=== PATIENT | female | born 1970 | race Caucasian/White ===

== ENCOUNTER 2021-08-25 09:29 | Outpatient (CLI) | payer BC, SELFPAY ==
[2021-08-25 11:33] LABS: Cholesterol* 176 mg/dL (90-199); HDL Cholesterol* 50 mg/dL (>=50); LDL Cholesterol Calculated 109 mg/dL (<100); Triglycerides* 84 mg/dL (40-149)
[2021-08-25 15:43] LABS: Glucose* 105 mg/dL (60-115)
[2021-08-27 00:17] LABS: Follicle Stimulating Hormone 20.7 IU/L
== END 2021-08-25 09:30 | disposition home or self-care (01) ==
PROVIDERS: PCP Family Medicine; Visit Provider Physician Assistant
DX: R53.83 Other fatigue (principal); N95.1 Menopausal and female climacteric states; R23.2 Flushing
CPT/HCPCS: 80061; 82947; 83001; 84443

== ENCOUNTER 2022-01-20 09:41 | Emergency (ER) | payer BC, SELFPAY ==
[2022-01-20 09:49] VITALS: BP 116/76; PULSE 96; RESP 20; TEMP 36.6; O2SAT 95; BMI 32.5
--- NOTE | 2022-01-20 10:09 | ED_ITS ---
HPI - General Adult General Chief complaint: Skin/Abscess/Foreign Body Stated complaint: Broke out in hives, post op Time Seen by Provider: 01/20/22 09:56 History of Present Illness HPI narrative: This 51-year-old female comes in reporting pruritic hives that began yesterday. Four days ago she had a tummy tuck and liposuction procedure. Since then she has been wearing a binder that covers her upper thighs, pelvis, and abdomen. It is in this area primarily where she has pruritus and maculopapular rash. Some of this is extended up into her axilla and upper arms. She states that she is due to have this binder removed on day 4 or 5. Today is day 4 postop. She did take 2 Benadryl tablets last evening and did not get much relief but states that it made her tired and she slept well. Related Data Home Medications Medication Instructions Recorded Confirmed estrogen balance PO 12/08/21 Previous Rx's Medication Instructions Recorded venlafaxine 37.5 mg 37.5 mg PO QDAY #90 caps 10/20/21 capsule,extended release 24 hr (Effexor XR) methylprednisolone 4 mg tablets in See Rx Instructions PO .COMPLEX 01/20/22 a dose pack (Medrol (John)) #21 ea triamcinolone acetonide 0.1 % 1 applic topical BID #30 grams 01/20/22 topical cream Allergies Allergy/AdvReac Type Severity Reaction Status Date / Time penicillin V Allergy Intermediate Hives Verified 12/08/21 14:36 tazobactam Allergy Mild Rash Verified 12/08/21 14:36 sulfacetamide AdvReac Intermediate Migraine Verified 12/08/21 14:36 hydrocodone AdvReac Unknown Constipatio Verified 12/08/21 14:36 n hydromorphone AdvReac Constipatio Verified 12/08/21 14:36 n Clavulanate Allergy Mild Rash Uncoded 12/08/21 14:36 Sulfa drugs AdvReac Intermediate Migraine Uncoded 12/08/21 14:36 Review of Systems Status of ROS: Reports: 10 or more systems reviewed and unremarkable except as noted in History and below Narrative: Constitutional: No fevers, no weight gain or loss. Eyes: No discharge. No vision changes. HENT: No congestion, no sore throat, no ear pain. Cardiovascular: No chest pain, no palpitations. Respiratory: No shortness of breath, no wheezes, no cough. Gastrointestinal: No abdominal pain, no vomiting, no diarrhea. Genitourinary: No dysuria, no hematuria. Musculoskeletal: Normal range of motion. Skin: Pruritic rash as described above. Neurological: No dizziness, weakness, sensory change, speech change. Endo/Heme/Allergies: No bruising or bleeding. No polydipsia. Pysch: no suicidality, no anxiety, no insomnia. All other systems reviewed and are negative. [facility] Medical History (Updated 01/20/22 @ 10:13 by Misbah Jenkins MD) Diverticulitis of intestine (2017) Gastroesophageal reflux disease Irritable bowel syndrome Vasomotor symptoms due to menopause Surgical History (Updated 12/10/21 @ 22:31 by Camilo Logan MD) History of section History of colonoscopy History of knee surgery History of reduction mammoplasty S/P LASIK surgery Status post hysterectomy Status post laparoscopic colectomy Family History Other FH: thyroid cancer Family history of Hodgkin's lymphoma Social History Narrative: Patient is . She works in customer service. Has high school level education. Exercises regularly. Does not use tobacco or E cigarettes. Denies alcohol or recreational drug use. No concerns with safety or abuse. Smoking Status: Never smoker Do you use any of these nicotine containing products: None Second hand tobacco smoke exposure: No How often do you have a drink containing alcohol: monthly or less How many standard drinks containing alcohol do you have on a typical day: 1 or 2 AUDIT-C Alcohol total score: 1 Non-prescribed substance use: denies use Little interest or pleasure in doing things: not at all Feeling down, depressed, or hopeless: not at all Exam Narrative: Exam Narrative: Constitutional: Well-developed, well-nourished, no acute distress. HEENT: Normocephalic, atraumatic. Neck: Normal range of motion. Nontender. Supple. Heart: Regular. No murmurs. Normal rate. Intact distal pulses. Lungs: Clear to auscultation. No chest discomfort. No wheezes, rhonchi, or rales. Abdomen: Normal bowel sounds. Nontender. No rebound tenderness. Genitalia: Deferred. Back: No midline tenderness. Normal range of motion. Extremities: Normal range of motion. No injury. Skin: Intact. Warm. No erythema or pallor. Maculopapular rash that is pruritic on the trunk and upper portion of lower extremities and upper extremities. Neurologic: No altered sensation. No weakness. Alert and oriented. Psychiatric: No suicidality. No anxiety or depression. No insomnia. Nursing notes and vitals signs are reviewed. Const: Vital Signs, click to edit/add: Vital Signs - 24 hr 01/20/22 09:49 Temperature 97.9 F Pulse Rate [Right Pulse Oximeter] 96 Respiratory Rate 20 Blood Pressure [Le ft Upper Arm] 116/76 Pulse Oximetry 95 Oxygen Delivery Me thod Room Air Course Vital Signs Vital signs: Initial Vital Signs Temperature 97.9 F 01/20/22 09:49 Temperature Source Temporal Artery Scan 01/20/22 09:49 Pulse Rate 96 01/20/22 09:49 Respiratory Rate 20 01/20/22 09:49 Blood Pressure 116/76 01/20/22 09:49 Blood Pressure Mean 89 01/20/22 09:49 Blood Pressure Position Sitting 01/20/22 09:49 Pulse Oximetry 95 01/20/22 09:49 Oxygen Delivery Method 01/20/22 09:49 Vital Signs Temperature 97.9 F 01/20/22 09:49 Pulse Rate 96 01/20/22 09:49 Respiratory Rate 20 01/20/22 09:49 Blood Pressure 116/76 01/20/22 09:49 Pulse Oximetry 95 01/20/22 09:49 Oxygen Delivery Method 01/20/22 09:49 Temperature 97.9 F 01/20/22 09:49 Pulse Rate 96 01/20/22 09:49 Respiratory Rate 20 01/20/22 09:49 Blood Pressure 116/76 01/20/22 09:49 Pulse Oximetry 95 01/20/22 09:49 Oxygen Delivery Method 01/20/22 09:49 Medical Decision Making MDM Narrative Medical decision making narrative: This patient comes in with maculopapular rash that is pruritic. She is not on any new medications. She did have liposuction and tummy tuck done 4 days ago and has been wearing a girdle and that is suspicious as the cause for her symptoms. Today is day 4 and she is instructed that it is okay to remove it at this time. The binder was removed. The patient received an oral dose of dexamethasone and prescriptions for Medrol Dosepak and triamcinolone cream. I encouraged her to also to use [id number] antihistamines as needed and dir ected. Discharge Plan Discharge Clinical Impression: Acute urticaria, Rash Patient Disposition: Home, Self-Care Condition: Stable Additional Instructions: Take medication as needed and directed. Follow up with MD or return if worsening. Prescriptions: New triamcinolone acetonide 0.1 % cream 1 applic topical BID Qty: 30 0RF methylprednisolone [Medrol (John)] 4 mg tablets,dose pack See Rx Instructions .ROUTE .COMPLEX Qty: 21 0RF Rx Instructions: orally per package directions No Action venlafaxine [Effexor XR] 37.5 mg capsule,extended release 24hr 37.5 mg PO QDAY Qty: 90 2RF estrogen balance PO Follow Up/Referrals: Camilo Logan MD [Primary Care Provider] - Stand Alone Forms: [email or web address] Info Instructions
[2022-01-20] MEDS: dexAMETHasone 10 MG/ML inj PO (10:25)
--- OUTSIDE RECORDS SUMMARY | 2022-01-20 10:25 | XMS_ITS | Clinical Summary ---
:1970 Author Organization [employer] [facility] [place] [address] Care Team Providers Name Role Phone All Mak MD Primary Care Provider Allergies Active Allergy Reactions Severity Noted Date Comments Amoxicillin Hives High 10/24/2011 Penicillins Hives High 10/24/2011 Sulfa (Sulfonamide Antibiotics) Headache High 2 Hydrocodone-Acetaminophen Constipation High 10/24/2011 Medications No known medications Active Problems Not on file Social History Tobacco Use Types Packs/Day Years Used Date Never Smoker Smokeless Tobacco: Never Used Tobacco Cessation: Counseling Given: Yes Alcohol Use Standard Drinks/Week Comments No 0 (1 standard drink = 0.6 oz pure alcoho l) Sex Assigned at Date Recorded Not on file Obstetrics History Last Filed Vital Signs Vital Sign Reading Time Taken Comments Blood Pressure 112/76 10/16/2016 3:56 PM CDT Pulse 60 10/16/2016 3:56 PM CDT Temperature 36.7 ??C (98.1 ??F) 10/16/2016 3:56 PM CDT Respiratory Rate - - Oxygen Saturation 98% 10/16/2016 3:56 PM CDT Inhaled Oxygen Concentration - - Weight 95.1 kg (209 lb 9.6 oz) 10/02/2016 1:15 PM CDT Height - - Body Mass Index - - Plan of Treatment Health Maintenance Due Date Last Done Comments COVID-19 vaccine series (#1) 06/17/1970 Tdap 1980 Depression screening for age 12+ 1981 HIV for age 15-65 1984 BMI (ht and wt on same day) for age 18+ 12/18/1987 Hepatitis C screening for age 18-79 12/18/1987 Tetanus booster 1989 Pap test for age 21-65 1990 Colonoscopy through age 75 2014 Lipids for age 45-75 2014 Mammogram for age 45-75 2014 Zoster (shingles) series for age 50+ (1 of 2) 12/18/2019 Influenza for age 50-64 10/26/2021 Results Not on filefrom Last 3 Months Insurance Payer Benefit Plan / Subscriber ID Effective Dates Phone Addre ss Type Group BLUE CROSS BLUE CROSS OF [id number] 2019-Present [address] [place] [address] Care Teams Research Biologist Relationship Specialty Start Date End Date All Mak MD PCP - General Family Practice 10/22/11
== END 2022-01-20 10:25 | disposition home or self-care (01) ==
LOC: ED 10:24
PROVIDERS: Emergency Provider Emergency Medicine Emergency Medical Services; PCP Family Medicine
DX: L50.9 Urticaria, unspecified (principal); L29.9 Pruritus, unspecified
CPT/HCPCS: 99283; 99284; J1100

== ENCOUNTER 2022-01-21 21:10 | Emergency (ER) | payer BC, SELFPAY ==
[2022-01-21 21:52] VITALS: BP 129/81; PULSE 77; RESP 20; TEMP 36.4; O2SAT 98; BMI 31.0
--- NOTE | 2022-01-21 22:56 | ED.GENADULT ---
HPI - General Adult General Chief complaint: Edema Stated complaint: hives/face is swelling up Time Seen by Provider: 01/21/22 22:35 Source: patient and family Mode of arrival: ambulatory History of Present Illness HPI narrative: 51-year-old female who presents to emergency department for the 2nd time in 2 days. She had an abdominal plasty on the and reports that she has been on several medications in the interim. Sounds of these are mostly anti-inflammatories. I reviewed Dr. Jenkins's note from yesterday. Yesterday, she noted onset of hives, mainly in the abdominal area under the armpits and along the neck. She was started on steroids and instructed to take Smita 3 times daily. She reports that initially her symptoms were improving. This morning, she was late taking her morning Smita and started to have increased itching. Tonight she noted swelling of her right lip. There is no tongue swelling, no difficulty swallowing, no swelling of the eyelids. She says that she has felt short of breath since the surgery but seems to trip viewed this to her abdominal binder. Stable to speak full sentences. She denies any fever, no dizziness, lightheadedness or diarrhea. Not instructed to use other antihistamines like Benadryl, Vistaril etc.. She does have a history of prior allergic reactions to antibiotics and other medications which have been similar. No history of intubation from anaphylaxis. She is otherwise feeling well. Denies any symptoms of COVID, fevers, respiratory illness. She is voiding normally and has no other systemic complaints. The hives are improving overall but she still has some on the abdomen. She also notes some on the palms which are ongoing since yesterday. Past medical history reviewed. Home medications notable for Effexor which she takes for hot flashes and [id number]-[id number] estrogen supplement. Surgical history is extensive and notable for prior hysterectomy, prior C-sections. A partial colectomy for diverticulitis, breast reduction and a leg surgery for fracture. Recent abdominal plasty noted 2 weeks ago. Socially, she is a nonsmoker with no alcohol or unusual ingestions. ROS is notable for the generalized, abdominal and allergic symptoms as described above. Otherwise denies times 12 systems. Related Data Home Medications Medication Instructions Recorded Confirmed estrogen balance PO 12/08/21 Previous Rx's Medication Instructions Recorded venlafaxine 37.5 mg 37.5 mg PO QDAY #90 caps 10/20/21 capsule,extended release 24 hr (Effexor XR) methylprednisolone 4 mg tablets in See Rx Instructions PO .COMPLEX 01/20/22 a dose pack (Medrol (John)) #21 ea triamcinolone acetonide 0.1 % 1 applic topical BID #30 grams 01/20/22 topical cream Allergies Allergy/AdvReac Type Severity Reaction Status Date / Time penicillin V Allergy Intermediate Hives Verified 12/08/21 14:36 tazobactam Allergy Mild Rash Verified 12/08/21 14:36 sulfacetamide AdvReac Intermediate Migraine Verified 12/08/21 14:36 hydrocodone AdvReac Unknown Constipatio Verified 12/08/21 14:36 n hydromorphone AdvReac Constipatio Verified 12/08/21 14:36 n Clavulanate Allergy Mild Rash Uncoded 12/08/21 14:36 Sulfa drugs AdvReac Intermediate Migraine Uncoded 12/08/21 14:36 PFSH PFSH Medical History Diverticulitis of intestine (2017) Gastroesophageal reflux disease Irritable bowel syndrome Vasomotor symptoms due to menopause Surgical History History of section History of colonoscopy History of knee surgery History of reduction mammoplasty S/P LASIK surgery Status post hysterectomy Status post laparoscopic colectomy Family History Other FH: thyroid cancer Family history of Hodgkin's lymphoma Social History Narrative: Patient is . She works in customer service. Has high school level education. Exercises regularly. Does not use tobacco or E cigarettes. Denies alcohol or recreational drug use. No concerns with safety or abuse. Smoking Status: Never smoker Do you use any of these nicotine containing products: None Second hand tobacco smoke exposure: No How often do you have a drink containing alcohol: monthly or less How many standard drinks containing alcohol do you have on a typical day: 1 or 2 AUDIT-C Alcohol total score: 1 Non-prescribed substance use: denies use Little interest or pleasure in doing things: not at all Feeling down, depressed, or hopeless: not at all Exam Const: Vital Signs, click to edit/add: Vital Signs - 24 hr 01/21/22 21:52 Temperature 97.6 F Pulse Rate [Pulse Oximeter] 77 Respiratory Rate 20 Blood Pressure [Ri ght Upper Arm] 129/81 Pulse Oximetry 98 Oxygen Delivery Me thod Room Air Documenting provider has reviewed patient's vital signs: yes Common normals: no apparent distress General appearance: cooperative, comfortable and well kempt HENMT: Common normals: normocephalic Head and scalp: normocephalic Other: Facial exam is notable for mild to moderate swelling of the right lower lip very mild right upper lip, does not cross the midline. The beautifully mucosa is normal. There is no tongue swelling, no blistering. The eyes have no eyelid swelling. Normal conjugate gaze with pupils are equal round with normal visual tracking. Eye: Common normals: PERRL and conjunctivae normal Conjunctiva: conjunctiva(e) normal Pupil: PERRL Neck & C-Spine: Common normals: full ROM and no lymphadenopathy Chest: Common normals: inspection of chest normal Resp: Common normals: normal respiratory effort, no use of accessory muscles and clear to auscultation bilaterally Effort & inspection: able to speak in complete sentences Auscultation: clear to auscultation bilaterally Cardio: Common normals: regular rate, regular rhythm, S1 normal heart sound, S2 normal heart sound, no murmurs and peripheral pulses 2+ throughout Rate: regular rate Rhythm: regular rhythm Heart sounds: S1 normal and S2 normal Peripheral pulses: pulses 2+ throughout GI: Other: Abdomen with normoactive bowel sounds. Surgical scars are healing beautifully. There is no redness, no drainage, no swelling. No areas of fluctuance. Back & Pelvis: Other: Skin of the back appears normal. Extremity: Other: Very few dime-sized and smaller hives behind both knees. Calves are without tenderness, no swelling of the lower legs. Neuro: Speech: speech normal Motor exam: no tremor noted and no movement abnormalities noted Psych: Common normals: mental status grossly normal, thought process normal and cooperative Appearance: well kempt Thought process: normal thought process Skin: Narrative: Swelling of the lip as noted above. Very few dime-sized in smaller hives covering less than 1% body surface area noted on the abdomen, none on the chest but there are a few behind the knee as stated above. This is improved per patient significantly from her exam yesterday. Lip swelling is new Course Vital Signs Vital signs: Initial Vital Signs Temperature 97.6 F 01/21/22 21:52 Temperature Source Temporal Artery Scan 01/21/22 21:52 Pulse Rate 77 01/21/22 21:52 Pulse Rhythm 01/21/22 21:52 Respiratory Rate 20 01/21/22 21:52 Blood Pressure 129/81 01/21/22 21:52 Blood Pressure Mean 97 01/21/22 21:52 Pulse Oximetry 98 01/21/22 21:52 Oxygen Delivery Method 01/21/22 21:52 Vital Signs Temperature 97.6 F 01/21/22 21:52 Pulse Rate 77 01/21/22 21:52 Respiratory Rate 20 01/21/22 21:52 Blood Pressure 129/81 01/21/22 21:52 Pulse Oximetry 98 01/21/22 21:52 Oxygen Delivery Method 01/21/22 21:52 Temperature 97.6 F 01/21/22 21:52 Pulse Rate 77 01/21/22 21:52 Respiratory Rate 20 01/21/22 21:52 Blood Pressure 129/81 01/21/22 21:52 Pulse Oximetry 98 01/21/22 21:52 Oxygen Delivery Method 01/21/22 21:52 Medical Decision Making MDM Narrative Medical decision making narrative: I suspect the patient would benefit from more aggressive antihistamine therapy. I will dose famotidine p.o. x1 and give 50 of IM Vistaril and continue re-evaluation. I do not think she would benefit from more steroids at this time and I am not appreciating any true signs of anaphylaxis. There is no hypotension. Will administer the Vistaril and re-evaluate. Will need several hours of monitoring even if this is successful and a better plan for antihistamines outpatient. Repeat evaluation 0020: Patient with marked improvement after Vistaril. She agrees that she is feeling much better as well and notices decreased swelling. Oropharynx showing no signs of swelling of the tongue, marked improvement in with swelling. Still has a few hives proximally in the back of the knees but no other areas. Palm are feeling less itchy as well. Is feel as though she could manage at home. Discharge plan thoroughly discussed as well as alarm symptoms. Discharge Plan Discharge Clinical Impression: Allergic reaction Patient Disposition: Home w/ Parent or Adult Instructions: General Allergic Reaction (ED) Additional Instructions: I am glad that the new medication seems to be helping so much. I have given you a prescription of hydroxyzine to continue this at home. Your next dose will be at about 530 in the morning. Continue taking 1 pill every 6 hours scheduled for the next 2 days, you may increase to 2 pills with a max of 6 pills total per 24 hours. Continue the steroid taper that was previously prescribed. It is okay to take Tylenol and/or ibuprofen as needed for pain. Follow up with her surgeon at previously scheduled intervals. Need to also take the Smita that was previously prescribed. The hydroxyzine will cover both. Activity Level: No Restrictions Discharge Diet: Regular Prescriptions: No Action venlafaxine [Effexor XR] 37.5 mg capsule,extended release 24hr 37.5 mg PO QDAY Qty: 90 2RF estrogen balance PO triamcinolone acetonide 0.1 % cream 1 applic topical BID Qty: 30 0RF methylprednisolone [Medrol (John)] 4 mg tablets,dose pack See Rx Instructions .ROUTE .COMPLEX Qty: 21 0RF Rx Instructions: orally per package directions Follow Up/Referrals: Camilo Logan MD [Primary Care Provider] - Stand Alone Forms: [employer] Info Instructions
[2022-01-21] MEDS: FAMOTIDINE 20 MG TABLET PO (23:26)
--- OUTSIDE RECORDS SUMMARY | 2022-01-21 23:26 | XMS_ITS | Clinical Summary ---
:1970 Author Organization [employer] [facility] [place] [address] Care Team Providers Name Role Phone All [...] Type Group BLUE CROSS BL[employer] OF [id number] 2019-Present [address] [place] [address] Care Teams Hot Die Press Feeder Relationship Specialty Start Date End Date All Mak MD PCP - General Family Practice 10/22/11
[2022-01-22 00:45] VITALS: PULSE 80; RESP 16; O2SAT 98
== END 2022-01-22 00:46 | disposition home or self-care (01) ==
PROVIDERS: Emergency Provider Family Medicine; PCP Family Medicine
DX: L50.9 Urticaria, unspecified (principal)
CPT/HCPCS: 96372; 99282; 99283; A9270; J3410

== ENCOUNTER 2022-01-22 20:04 | Emergency (ER) | payer BC, SELFPAY ==
[2022-01-22 20:54] VITALS: BP 145/78; PULSE 90; RESP 20; TEMP 36.7; O2SAT 99; BMI 31.0
--- NOTE | 2022-01-22 21:08 | ED_ITS ---
HPI - Skin/Abscess/Foreign Bdy General Chief complaint: Skin/Abscess/Foreign Body Stated complaint: Hives all over body Time Seen by Provider: 01/22/22 21:01 History of Present Illness HPI narrative: Pt is a 51 year old woman who is 2 weeks post abdominalplasty who presents with urticarial rash diffusely. Pt has been seen in the ED in each of the last 2 days. She is currently on antihistamines and prednisone but is worried that the lesions are worseing. The lesions are primarily on the torso but she does have a few on her face and legs. No involvement of the mucus membranes. No neurological symptoms or fever. Pt is otherwise healing well and has no abd pain or issues with the incision. No SOB, Nausea or vomiting. Related Data Home Medications Medication Instructions Recorded Confirmed estrogen balance PO 12/08/21 Previous Rx's Medication Instructions Recorded venlafaxine 37.5 mg 37.5 mg PO QDAY #90 caps 10/20/21 capsule,extended release 24 hr (Effexor XR) methylprednisolone 4 mg tablets in See Rx Instructions PO .COMPLEX 01/20/22 a dose pack (Medrol (John)) #21 ea triamcinolone acetonide 0.1 % 1 applic topical BID #30 grams 01/20/22 topical cream Allergies Allergy/AdvReac Type Severity Reaction Status Date / Time penicillin V Allergy Intermediate Hives Verified 12/08/21 14:36 tazobactam Allergy Mild Rash Verified 12/08/21 14:36 sulfacetamide AdvReac Intermediate Migraine Verified 12/08/21 14:36 hydrocodone AdvReac Unknown Constipatio Verified 12/08/21 14:36 n hydromorphone AdvReac Constipatio Verified 12/08/21 14:36 n Clavulanate Allergy Mild Rash Uncoded 12/08/21 14:36 Sulfa drugs AdvReac Intermediate Migraine Uncoded 12/08/21 14:36 Review of Systems Status of ROS: Reports: 10 or more systems reviewed and unremarkable except as noted in History and below [facility] Medical History Diverticulitis of intestine (2017) Gastroesophageal reflux disease Irritable bowel syndrome Vasomotor symptoms due to menopause Surgical History History of section History of colonoscopy History of knee surgery History of reduction mammoplasty S/P LASIK surgery Status post hysterectomy Status post laparoscopic colectomy Family History Other FH: thyroid cancer Family history of Hodgkin's lymphoma Social History Narrative: Patient is . She works in customer service. Has high school level education. Exercises regularly. Does not use tobacco or E cigarettes. Denies alcohol or recreational drug use. No concerns with safety or abuse. Smoking Status: Never smoker Do you use any of these nicotine containing products: None Second hand tobacco smoke exposure: No How often do you have a drink containing alcohol: monthly or less How many standard drinks containing alcohol do you have on a typical day: 1 or 2 AUDIT-C Alcohol total score: 1 Non-prescribed substance use: denies use Little interest or pleasure in doing things: not at all Feeling down, depressed, or hopeless: not at all service: No Exam Narrative: Exam Narrative: EXAM GENERAL: Patient appears comfortable and well. EYES: No scleral icterus. ENT: Tympanic membranes and oropharynx normal. THYROID: no thyroid nodules or thyromegaly. LYMPH: No supraclavicular or cervical lymphadenopathy. SKIN: Diffuse urticaria with sparing of the mucus membranes primarily located on the torso. EXT: No dependent lower extremity pedal edema. HEART: Regular rate and rhythm with no murmurs, rubs, or gallops. LUNGS: Clear to auscultation bilaterally with no crackles or wheezes. ABD: Soft, non tender, non distended. PSYCH: Good eye contact, speech is not pressured. Const: Vital Signs, click to edit/add: Vital Signs - 24 hr 01/22/22 20:54 Temperature 98.1 F Pulse Rate [Right Pulse Oximeter] 90 Respiratory Rate 20 Blood Pressure [Ri ght Upper Arm] 145/78 H Pulse Oximetry 99 Oxygen Delivery Me thod Room Air Course Course Hospital Course: Pt seen and examined. CBC, CMP ordered. Reevaluation(s) Reevaluation #1: CBC shows leukocytosis remainder of the labs largely unremarkable. Time: 22:17 Vital Signs Vital signs: Initial Vital Signs Temperature 98.1 F 01/22/22 20:54 Temperature Source Temporal Artery Scan 01/22/22 20:54 Pulse Rate 90 01/22/22 20:54 Respiratory Rate 20 01/22/22 20:54 Blood Pressure 145/78 H 01/22/22 20:54 Blood Pressure Mean 100 01/22/22 20:54 Blood Pressure Position Sitting 01/22/22 20:54 Pulse Oximetry 99 01/22/22 20:54 Oxygen Delivery Method 01/22/22 20:54 Vital Signs Temperature 98.1 F 01/22/22 20:54 Pulse Rate 90 01/22/22 20:54 Respiratory Rate 20 01/22/22 20:54 Blood Pressure 145/78 H 01/22/22 20:54 Pulse Oximetry 99 01/22/22 20:54 Oxygen Delivery Method 01/22/22 20:54 Temperature 98.1 F 01/22/22 20:54 Pulse Rate 90 01/22/22 20:54 Respiratory Rate 20 01/22/22 20:54 Blood Pressure 145/78 H 01/22/22 20:54 Pulse Oximetry 99 01/22/22 20:54 Oxygen Delivery Method 01/22/22 20:54 MDM - Skin/Abscess/Foreign Bdy MDM Narrative Medical decision making narrative: Pt is a 51 year old woman who presents with fairly stable urticaria. Labs show leukocytosis but no other major findings. No fever and vital look fine. At this time, I would recommend continuing current treatment of steroids, antihistamines and PCP follow up. Differential Diagnosis Differential diagnosis: Likely abscess of skin or subcutaneous tissue, viral exanthem, dermatophytosis, urticaria, allergic reaction to drug, cellulitis, eczema and contact dermatitis Lab Data Labs: Lab Results 01/22/22 01/22/22 Range/Units 21:36 21:36 WBC 17.05 H (4.50-11.00) K/uL RBC 3.69 L (4.00-5.20) m/uL Hgb 11.7 L (12.0-16.0) gm/dL Hct 34.8 (33.0-51.0) % MCV 94 (80-100) fL MCH 32 (26-34) pg MCHC 34 (32-36) gm/dL RDW Coeff of Andrzej 12.9 (11.5-15.5) % Plt Count 440 (140-440) K/uL Neut % (Auto) 90.9 H (42.0-72.0) % Lymph % (Auto) 4.8 L (20-44) % [place] % (Auto) 3.5 (0.0-11.0) % Eos % (Auto) 0.5 (0.0-7.0) % Baso % (Auto) 0.1 (0.0-3.0) % Neut # (Auto) 15.50 H (1.7-7.0) K/uL Lymph # (Auto) 0.80 L (0.90-2.90) K/uL [place] # (Auto) 0.60 (0.00-0.90) K/UL Eos # (Auto) 0.10 (0.00-0.50) K/uL Baso # (Auto) 0.00 (0.00-0.30) K/uL Abs Immat Gran (auto) 0.00 (0.00-0.30) K/uL Imm/Tot Granulo (auto) 0.2 % Sodium 138 (135-149) mmol/L Potassium 3.5 L (3.6-5.1) mmol/L Chloride 106 (96-114) mmol/L Carbon Dioxide 25 (20-32) mmol/L BUN 9 (7-30) mg/dL Creatinine 0.6 (0.5-1.5) mg/dL Estimated Creat Clear 114.62 Estimated GFR 108 ml/min Glucose 193 H (60-115) mg/dL Calcium 8.5 (8.4-10.6) mg/dL Total Bilirubin 0.3 (0.1-1.5) mg/dL AST 28 (12-35) U/L ALT 28 (4-35) U/L Alkaline Phosphatase 66 (40-150) U/L Total Protein 6.5 (6.0-8.3) g/dL Albumin 3.8 (3.3-5.0) g/dL Discharge Plan Discharge Clinical Impression: Urticaria Condition: Stable Instructions: Urticaria (ED) Additional Instructions: Continue current medications Follow up with your doctor as needed Activity Level: No Restrictions Discharge Diet: Regular Prescriptions: No Action venlafaxine [Effexor XR] 37.5 mg capsule,extended release 24hr 37.5 mg PO QDAY Qty: 90 2RF estrogen balance PO triamcinolone acetonide 0.1 % cream 1 applic topical BID Qty: 30 0RF methylprednisolone [Medrol (John)] 4 mg tablets,dose pack See Rx Instructions .ROUTE .COMPLEX Qty: 21 0RF Rx Instructions: orally per package directions Follow Up/Referrals: Camilo Logan MD [Primary Care Provider] - Stand Alone Forms: [employer] Info Instructions
--- OUTSIDE RECORDS SUMMARY | 2022-01-22 21:34 | XMS_ITS | Clinical Summary ---
:1970 Author Organization [employer] [facility] [place] [address] Care Team Providers Name Role Phone All [...] Type Group [id number] 2019-Present [id number] [place] [address] Care Teams Vehicle Controls Engineer Relationship Specialty Start Date End Date All Mak MD PCP - General Family Practice 10/22/11
[2022-01-22 21:43] LABS: Basophils Percent Auto 0.1 % (0.0-3.0); Eosinophils Percent Auto 0.5 % (0.0-7.0); Hematocrit 34.8 % (33.0-51.0); Hemoglobin* 11.7 gm/dL (12.0-16.0); Immature Granulocytes Pct Auto 0.2 %; Lymphocytes Percent Auto 4.8 % (20-44); Mean Corpuscular HGB Conc 34 gm/dL (32-36); Mean Corpuscular Hemoglobin 32 pg (26-34); Mean Corpuscular Volume 94 fL (80-100); Monocytes Percent Auto 3.5 % (0.0-11.0); Neutrophils Percent Auto 90.9 % (42.0-72.0); Platelet Count* 440 K/uL (140-440); RDW Coefficient of Variation % 12.9 % (11.5-15.5); Red Blood Count 3.69 m/uL (4.00-5.20); White Blood Count* 17.05 K/uL (4.50-11.00)
[2022-01-22 21:57] LABS: Albumin* 3.8 g/dL (3.3-5.0); Chloride* 106 mmol/L (96-114); Slide Review Reflex No
[2022-01-22 21:58] LABS: Potassium* 3.5 mmol/L (3.6-5.1); Sodium* 138 mmol/L (135-149)
[2022-01-22 22:00] LABS: Bilirubin Total* 0.3 mg/dL (0.1-1.5); Carbon Dioxide* 25 mmol/L (20-32); Creatinine* 0.6 mg/dL (0.5-1.5); Est. Creatinine Clearance* 114.62; Estimated Glomerular Filt Rate 108 ml/min; Total Protein* 6.5 g/dL (6.0-8.3)
[2022-01-22 22:01] LABS: Alanine Aminotransferase* 28 U/L (4-35); Alkaline Phosphatase* 66 U/L (40-150); Aspartate Amino Transferase* 28 U/L (12-35); Blood Urea Nitrogen* 9 mg/dL (7-30); Calcium* 8.5 mg/dL (8.4-10.6); Glucose* 193 mg/dL (60-115)
== END 2022-01-22 22:40 | disposition home or self-care (01) ==
PROVIDERS: Emergency Provider Internal Medicine; PCP Family Medicine
DX: L50.9 Urticaria, unspecified (principal)
CPT/HCPCS: 36415; 80053; 85025; 99283

== ENCOUNTER 2022-11-17 23:14 | Emergency (ER) | payer BC, SELFPAY ==
[2022-11-17 23:28] VITALS: BP 128/88; PULSE 82; RESP 14; TEMP 36.6; O2SAT 98; BMI 29.5
[2022-11-17 23:45] LABS: Appearance Urine Slightly Cloudy (Clear); Bilirubin Urine Negative (Negative); Blood Urine 3+ (Negative); Color Urine Yellow (Yellow); Glucose Urine Negative (Negative); Ketones Urine Negative (Negative); Leukocyte Esterase Urine 2+ (Negative); Nitrite Urine Negative (Negative); Protein Urine 1+ (Negative); Specific Gravity Urine 1.025 (1.000-1.030); Urobilinogen Urine 0.2 (0.2-1.0); pH Urine 5.5 (5.0-8.5)
--- NOTE | 2022-11-17 23:55 | ED.GENADULT ---
HPI - General Adult General Chief complaint: Urogenital Problems, Female Stated complaint: frequent urination Time Seen by Provider: 11/17/22 23:52 Source: patient Mode of arrival: ambulatory Limitations: no limitations History of Present Illness HPI narrative: 51-year-old female coming in today concerned about dysuria, increased frequency urgency going on for approximately 4 hours. Denies any systemic symptoms. States that she has had UTIs in the past and this feels very similar to that. Related Data Home Medications Medication Instructions Recorded Confirmed estrogen balance PO 12/08/21 Previous Rx's Medication Instructions Recorded venlafaxine 37.5 mg 37.5 mg PO DAILY #90 caps 10/15/22 capsule,extended release 24 hr Allergies Allergy/AdvReac Type Severity Reaction Status Date / Time penicillin V Allergy Intermediate Hives Verified 12/08/21 14:36 tazobactam Allergy Mild Rash Verified 12/08/21 14:36 sulfacetamide AdvReac Intermediate Migraine Verified 12/08/21 14:36 hydrocodone AdvReac Unknown Constipatio Verified 12/08/21 14:36 n hydromorphone AdvReac Constipatio Verified 12/08/21 14:36 n Clavulanate Allergy Mild Rash Uncoded 12/08/21 14:36 Sulfa drugs AdvReac Intermediate Migraine Uncoded 12/08/21 14:36 Review of Systems Status of ROS: Reports: 10 or more systems reviewed and unremarkable except as noted in History and below PFSH PFS Medical History Vasomotor symptoms due to menopause ?N95.1 - Menopausal and female climacteric states (ICD-10) Irritable bowel syndrome ?K58.9 - Irritable bowel syndrome without diarrhea (ICD-10) Gastroesophageal reflux disease ?K21.9 - Gastro-esophageal reflux disease without esophagitis (ICD-10) Diverticulitis of intestine (2017) ?K57.92 - Diverticulitis of intestine, part unspecified, without perforation or abscess without bleeding (ICD-10) Surgical History S/P LASIK surgery ?Z98.890 - Other specified postprocedural states (ICD-10) Status post laparoscopic colectomy ?Z90.49 - Acquired absence of other specified parts of digestive tract (ICD-10) Status post hysterectomy ?Z90.710 - Acquired absence of both cervix and uterus (ICD-10) History of reduction mammoplasty ?Z98.890 - Other specified postprocedural states (ICD-10) History of knee surgery ?Z98.890 - Other specified postprocedural states (ICD-10) History of colonoscopy ?Z98.890 - Other specified postprocedural states (ICD-10) History of section ?Z98.891 - History of uterine scar from previous surgery (ICD-10) Family History Other FH: thyroid cancer Family history of Hodgkin's lymphoma Social History Narrative: Patient is . She works in customer service. Has high school level education. Exercises regularly. Does not use tobacco or E cigarettes. Denies alcohol or recreational drug use. No concerns with safety or abuse. Smoking Status: Never smoker Do you use any of these nicotine containing products: None Second hand tobacco smoke exposure: No How often do you have a drink containing alcohol: monthly or less How many standard drinks containing alcohol do you have on a typical day: 1 or 2 AUDIT-C Alcohol total score: 1 Non-prescribed substance use: denies use Little interest or pleasure in doing things: not at all Feeling down, depressed, or hopeless: not at all service: No Exam Narrative: Exam Narrative: Well-nourished well-developed patient in no acute distress. Alert and oriented. Answers questions appropriately. Mood and affect are appropriate. Thoughts are goal oriented and rational. No tangential or magical thinking noted. Patient speaks in full sentences without needing to catch her breath. HEENT: Normocephalic atraumatic. Pupils are equally round reactive to light. Extraocular muscles are intact. Conjunctivae are moist without any icterus noted. Moist mucous membranes. Skin: Well perfused without any obvious rashes. Const: Vital Signs, click to edit/add: Vital Signs - 24 hr 11/17/22 23:28 Temperature 97.8 F Pulse Rate [Pulse Oximeter] 82 Respiratory Rate 14 Blood Pressure [Ri ght Upper Arm] 128/88 Pulse Oximetry 98 Oxygen Delivery Me thod Room Air Course Course ED Course: UA grossly positive for signs of infection. Vital Signs Vital signs: Initial Vital Signs Temperature 97.8 F 11/17/22 23:28 Temperature Source Temporal Artery Scan 11/17/22 23:28 Pulse Rate 82 11/17/22 23:28 Pulse Rhythm Regular 11/17/22 23:28 Respiratory Rate 14 11/17/22 23:28 Blood Pressure 128/88 11/17/22 23:28 Blood Pressure Mean 101 11/17/22 23:28 Blood Pressure Position Sitting 11/17/22 23:28 Pulse Oximetry 98 11/17/22 23:28 Oxygen Delivery Method Room Air 11/17/22 23:28 Vital Signs Temperature 97.8 F 11/17/22 23:28 Pulse Rate 82 11/17/22 23:28 Respiratory Rate 14 11/17/22 23:28 Blood Pressure 128/88 11/17/22 23:28 Pulse Oximetry 98 11/17/22 23:28 Oxygen Delivery Method Room Air 11/17/22 23:28 Temperature 97.8 F 11/17/22 23:28 Pulse Rate 82 11/17/22 23:28 Respiratory Rate 14 11/17/22 23:28 Blood Pressure 128/88 11/17/22 23:28 Pulse Oximetry 98 11/17/22 23:28 Oxygen Delivery Method Room Air 11/17/22 23:28 Medical Decision Making MDM Narrative Medical decision making narrative: 51-year-old female with a UTI. Will treat with Keflex t.i.d.. Lab Data Lab results reviewed: Yes I reviewed the patient's lab results Labs: Lab Results 11/17/22 Range/Units 23:35 Urine Color Yellow (Yellow) Urine Appearance Slightly Cloudy A (Clear) Urine pH 5.5 (5.0-8.5) Ur Specific [place] 1.025 (1.000-1.030) Urine Protein 1+ A (Negative) Urine Glucose (UA) Negative (Negative) Urine Ketones Negative (Negative) Urine Blood 3+ A (Negative) Urine Nitrite Negative (Negative) Urine Bilirubin Negative (Negative) Urine Urobilinogen 0.2 (0.2-1.0) Ur Leukocyte Esterase 2+ A (Negative) Urine RBC 10-25 A (0-2) Urine WBC 25-50 A (0-5) Ur Squamous Epith Cells Few (None-Few) Urine Bacteria Few A (None) Discharge Plan Discharge Clinical Impression: Urinary tract infection Patient Disposition: Home, Self-Care Condition: Stable Additional Instructions: Take all antibiotics as prescribed. Increase water intake. Prescriptions: No Action estrogen balance PO venlafaxine 37.5 mg capsule,extended release 24hr 37.5 mg PO DAILY Qty: 90 0RF Follow Up/Referrals: Camilo Logan MD [Primary Care Provider] - Stand Alone Forms: [employer] Info Instructions
[2022-11-17 23:56] LABS: Bacteria Urine Few; Squamous Epithelial Cell Urine Few (None-Few); WBC Urine 25-50 (0-5)
[2022-11-18] MEDS: cephALEXin 500 MG CAPSULE PO (00:01)
[2022-11-18 00:04] VITALS: BP 122/83; PULSE 74; RESP 18; O2SAT 97
--- NOTE | 2022-11-18 00:24 | PC.NURSE ---
pateint stated understanding to DC instructions, all belongings sent with patient
== END 2022-11-18 00:27 | disposition home or self-care (01) ==
LOC: ED 11-18 00:26
PROVIDERS: Emergency Provider Family Medicine; PCP Family Medicine
DX: N39.0 Urinary tract infection, site not specified (principal)
CPT/HCPCS: 81001; 87086; 87186; 99282; 99283; 99284; A9270

== ENCOUNTER 2024-01-28 13:25 | Outpatient (CLI) | payer BC, SELFPAY ==
--- OUTSIDE RECORDS SUMMARY | 2024-01-28 13:27 | XMS_ITS | Clinical Summary ---
Author Organization [facility] Address [place], [place] [address] Care Team Providers Care Performance Improvement Specialist Name Role Phone All Mak MD Primary Care Provider [phone] Allergies Active Allergy Reactions Criticality Noted Date Comments Amoxicillin Hives High 10/24/2011 Penicillins Hives High 10/24/2011 Sulfa (Sulfonamide Antibiotics) Headache High 09/26 Hydrocodone-Acetaminophen Constipation High 10/24/19 12 Medications No known medications Social History Tobacco Use Types Packs/Day Years Used Date Smoking Tobacco: Never Smokeless Tobacco: Never Tobacco Cessation:Counseling Given: Yes Alcohol Use Standard Drinks/Week Comments No 0 (1 standard drink = 0.6 oz pur e alcohol) Sex and Gender Information Value Date Recorded Sex Assigned at Not on file Gender Identity Not on file Sexual Orientation Not on file Obstetrics History Last Filed Vital Signs Vital Sign Reading Time Taken Comments Blood Pressure 112/76 10/16/2016 3:56 PM CDT Pulse 60 10/16/2016 3:56 PM CDT Temperature 36.7 C (98.1 F) 10/16/2016 3:56 PM CDT Respiratory Rate - - Oxygen Saturation 98% 10/16/2016 3:56 PM CDT Inhaled Oxygen Concentration - - Weight 95.1 kg (209 lb 9.6 oz) 10/02/2016 1:15 P M CDT Height - - Body Mass Index - - Plan of Treatment Health Maintenance Due Date Last Done Comments Tdap 1980 Depression screening for age 12+ 1981 HIV for age 15-65 1984 BMI (ht and wt on same day) for age 18+ 12/18/1987 Hepatitis C screening for ag e 18-79 12/18/1987 Tetanus booster 1989 Pap test for age 21-65 1990 Colonoscopy through age 75 2014 Lipids for age 45-75 2014 Mammogram for age 45-75 2014 Zoster (shingles) series for age 50+ (1 of 2) 12/18/2019 COVID-19 vaccine series ( - 2023- season) 2023 Influenza for age 50-64 10/27/2023 Pneumococcal series for age 6-64 Aged Out No longer eligible based on patient's age to complete this topic Care Teams Performance Improvement Specialist Relationship Specialty Start Date End Date All Mak MD PCP - General Family Practice 10/22/11
--- NOTE | 2024-01-28 13:40 | CRLHL7_ITS ---
For Patients: As a result of the Century Cures Act, medical imaging exams and procedure reports are released immediately into your electronic medical record. You may view this report before your referring provider. If you have questions, please contact your health care provider. BILATERAL SCREENING MAMMOGRAM WITH COMPUTER-AIDED DETECTION AND TOMOSYNTHESIS TECHNIQUE: CC and MLO views were obtained. These mammographic images have been obtained using full-field digital technique. These mammographic images were interpreted with the benefit of computer-aided detection. Breast Tomosynthesis was used in this interpretation. COMPARISON FILM: 03/24/21, 02/08/20. FINDINGS: There are scattered areas of fibroglandular density. IMPRESSION: There is no radiographic evidence for malignancy. ASSESSMENT: BI-RADS Category 1: Negative RECOMMENDATION: Routine screening mammogram in 1 year. A lay language report of this examination will be provided to the patient. Camilo Zavaleta M.D. Diagnostic Radiologist [email or web address] SP/Dictated by: Camilo Zavaleta MD @ 01/29/2024 11:42:00 AM (Electronically Signed)
== END 2024-01-28 13:26 | disposition home or self-care (01) ==
LOC: MAMMO 13:26
PROVIDERS: PCP Family Medicine; Visit Provider Physician Assistant
DX: Z12.31 Encounter for screening mammogram for malignant neoplasm of breast (principal)
CPT/HCPCS: 77063; 77067